=== PATIENT | male | born 1995 | race Caucasian/White ===

== ENCOUNTER 2017-05-27 01:28 | Emergency (ER) | payer OTHER ==
[~2017-05-27] VITALS: Ht 157.5 cm; Wt 63.6 kg
[~2017-05-27 01:28] MED LIST: LORA10CA; MULT1TAB70 PO
[2017-05-27 02:20] VITALS: BP 132/77
== END 2017-05-27 02:24 | disposition home or self-care (01) ==
LOC: EMS 01:29
DX: G56.01 Carpal tunnel syndrome, right upper limb (principal)
CPT/HCPCS: 99283

== ENCOUNTER 2019-02-16 10:57 | Emergency (ER) | payer OTHER ==
[~2019-02-16] VITALS: Ht 167.6 cm; Wt 65.9 kg
[2019-02-16] MEDS ORDERED: BENZOCAINE/MENTHOL LOZENGE PO ONE (14:00)
[2019-02-16 14:15] VITALS: BP 134/82
== END 2019-02-16 14:22 | disposition home or self-care (01) ==
LOC: EMS 10:57
DX: J02.8 Acute pharyngitis due to other specified organisms (principal); B97.89 Other viral agents as the cause of diseases classified elsewhere
CPT/HCPCS: 87430